=== PATIENT | female | born 1960 | race Two or more races ===

== ENCOUNTER 2021-08-15 09:00 | Inpatient (IN) | payer OTHER ==
[~2021-08-15] VITALS: Ht 170.2 cm; Wt 79.4 kg
[2021-08-15] MEDS ORDERED: NORV PO (12:35)
[2021-08-15] MEDS ORDERED: LIPIT PO (12:36)
[2021-08-15] MEDS ORDERED: IRBESARTAN-HCT1 EAC1 PO (12:36)
[2021-08-15] MEDS ORDERED: VITAMIN D310 MCG/1 M PO (12:37)
[2021-08-20] MEDS ORDERED: ATORVASTATIN CA10 MG (08:17)
[2021-08-20] MEDS ORDERED: NORVASC2.5 MG (08:17)
== END 2021-08-20 12:06 | disposition home or self-care (01) | DRG 582 ==
LOC: O/R 08-19 07:02 → SURH 08-19 09:00
PROVIDERS: ADMIT Specialist; ATTEND Specialist
PROC: 07T60ZZ Resection of Left Axillary Lymphatic, Open Approach (ICD-10-PCS; 2021-08-19)
PROC: 0HTU0ZZ Resection of Left Breast, Open Approach (ICD-10-PCS; principal; 2021-08-19 09:45)
DX: D05.02 Lobular carcinoma in situ of left breast (principal); C77.3 Secondary and unspecified malignant neoplasm of axilla and upper limb lymph nodes; Z20.822 Contact with and (suspected) exposure to COVID-19

== ENCOUNTER 2021-09-10 08:14 | Outpatient (CLI) | payer OTHER ==
[~2021-09-10 08:14] MED LIST: ATORVASTATIN CA10 MG; IRBESARTAN-HCT1 EAC1 PO; LIPIT PO; NORV PO; NORVASC2.5 MG; VITAMIN D310 MCG/1 M PO
== END 2021-09-10 08:29 | disposition home or self-care (01) ==
LOC: NUCLEAR 08:14
PROVIDERS: ATTEND Internal Medicine Hematology & Oncology
DX: C50.412 Malignant neoplasm of upper-outer quadrant of left female breast (principal)

== ENCOUNTER 2021-09-11 07:05 | Day surgery (SDC) | payer OTHER | END 2021-09-11 17:05 | disposition home or self-care (01) | LOC: CIR.AMB 07:05 | PROVIDERS: ATTEND Specialist | DX: C50.412 Malignant neoplasm of upper-outer quadrant of left female breast (principal); I10 Essential (primary) hypertension; J45.909 Unspecified asthma, uncomplicated; Z20.822 Contact with and (suspected) exposure to COVID-19 ==

== ENCOUNTER 2022-05-13 06:02 | Emergency (ER) | payer OTHER ==
[~2022-05-13] VITALS: Ht 170.2 cm; Wt 70.3 kg
[2022-05-13] MEDS ORDERED: NORFLEX100MG PO (06:12)
[2022-05-13] MEDS ORDERED: CELEBREX200MG PO (06:13)
[2022-05-13] MEDS ORDERED: ACTIDOGESIC CA1 EACH PO (06:13)
[2022-05-13] MEDS ORDERED: NABUMETONE500 MG PO (12:35)
[2022-05-13] MEDS ORDERED: NEURONTIN300 MG PO (12:35)
== END 2022-05-13 12:52 ==
LOC: ER 06:02
DX: M54.31 Sciatica, right side (principal); M54.9 Dorsalgia, unspecified

== ENCOUNTER 2022-11-12 08:15 | Outpatient (CLI) | payer OTHER ==
[~2022-11-12 08:15] MED LIST changes: +ACTIDOGESIC CA1 EACH PO; +CELEBREX200MG PO; +NABUMETONE500 MG PO; +NEURONTIN300 MG PO; +NORFLEX100MG PO
== END 2022-11-12 08:17 | disposition home or self-care (01) ==
LOC: NUCLEAR 08:15
PROVIDERS: ATTEND Internal Medicine Hematology & Oncology
DX: C50.412 Malignant neoplasm of upper-outer quadrant of left female breast (principal); Z17.1 Estrogen receptor negative status [ER-]

== ENCOUNTER 2023-12-10 08:01 | Outpatient (CLI) | payer OTHER | END 2023-12-10 08:02 | disposition home or self-care (01) | LOC: NUCLEAR 08:01 | PROVIDERS: ATTEND Internal Medicine Hematology & Oncology | DX: C50.112 Malignant neoplasm of central portion of left female breast (principal) ==

== ENCOUNTER 2024-12-27 07:21 | Outpatient (CLI) | payer OTHER | END 2024-12-27 07:22 | disposition home or self-care (01) | LOC: NUCLEAR 07:21 | PROVIDERS: ATTEND Internal Medicine Hematology & Oncology | DX: C50.412 Malignant neoplasm of upper-outer quadrant of left female breast (principal); C79.89 Secondary malignant neoplasm of other specified sites ==

== ENCOUNTER → 2025-05-01 | Day surgery (SDC) | payer OTHER ==
[~2025-05-01] MED LIST changes: +BUPIVACAINE HCL/MPF 0.5% 30ML VIAL ONE; +CEFAZOLIN SODIUM 1,000 MG VIAL IV SCH; +CEFAZOLIN SODIUM 1,000 MG VIAL ONE; +LIDOCAINE HCL 1%/EPINEPHRINE 20ML VIAL IJ ONE
== END | disposition home or self-care (01) ==
LOC: ADM 04-24 09:45 → CIR.AMB 06:00
PROVIDERS: ATTEND Specialist
DX: T82.514A Breakdown (mechanical) of infusion catheter, initial encounter (principal)